=== PATIENT | male | born 1980 | race African-American/Black ===

== ENCOUNTER 2016-04-16 19:54 | Observation (INO) ==
[2016-04-16] MEDS ORDERED: methylPREDNISolone SOD SUC 125 MG/2 ML VIAL IV ONE (21:08)
[2016-04-16] MEDS ORDERED: ALBUTEROL 2.5 MG/3 ML NEB RESP TX STA ×2 (21:08→23:47)
--- NOTE | 2016-04-16 21:08 | Emergency Department Note ---
Arrival - Arrival Chief Complaint: Upper Respiratory Stated Complaint: sob ED Nursing Triage Note: C/C congestion in head and chest, productive cough, short of breath, wheezing started last night Mode of Arrival: Ambulatory Time Seen by Provider: 04/16/16 21:07 - History of Present Illness HPI Narrative: The patient presents complaining of shortness of breath and fever. The shortness of breath worsened today despite nebulizations at home. He states he has a nonproductive cough. He overall feels bad. The patient has no specific complaint of nausea vomiting chest pain or chills. Allergies/Adverse Reactions: Allergies Allergy/AdvReac Type Severity Reaction Status Date / Time No Known Allergies Allergy Verified 04/16/16 20:39 Home Medications: Home Medications Medication Instructions Recorded Confirmed Type Albuterol Inhaler [Proventil 2 puff INH Q4H PRN #1 inhaler 04/13/15 12/22/15 Rx Inhaler] predniSONE TAB [PredniSONE] 60 mg PO DAILY 3 Days 04/13/15 12/22/15 Rx Albuterol Neb [Proventil Neb] 2.5 mg RESP TX Q6H PRN #20 neb 12/22/15 Rx methylPREDNISolone DOSEPAK [Medrol 4 mg PO DIRECTED #1 packet 12/22/15 Rx Dosepak] Review of System - Review of System 12 point system: reviewed and no additional remarkable complaints except as stated Medical,Surgical,& Family Hx - Medical History Respiratory: History of: Asthma - Social History Smoking Status: Current every day smoker Frequency of Alcohol Use: Rarely Type of Drug Use: None Exam Physical Examination: The patient appears well-developed and well-nourished with no acute distress. HEENT exam is unremarkable. The oropharynx is moist. Tympanic membranes are shiny. The neck appears normal with midline appearance of the trachea. There is full range of motion. The lungs demonstrate diffuse wheezes bilaterally. There is symmetric movement of the chest wall with inspiration. No point tenderness is present. The heart has a regular rate and rhythm with no gallops or murmurs. Abdomen demonstrates a normal appearance and is nontender with no rebound or guarding. Normal active bowel sounds are present. The extremities demonstrate no clubbing, cyanosis, or edema and are intact. Normal range of motion is present. Neurological exam is unremarkable. Cranial nerves II through XII were checked and intact. No focal motor sensory deficit is present in the extremities. Vital Signs: Vital Signs Temperature 97.6 F 04/16/16 20:36 Pulse Rate 72 04/17/16 00:00 Respiratory Rate 17 04/17/16 00:00 Blood Pressure 128/96 04/16/16 20:36 O2 Sat by Pulse Oximetry 98 04/17/16 00:00 Course - Reevaluation(s) Reevaluation #1: The patient is still wheezing although he says he feels slightly better. I'm going to repeat one more breathing treatment and if he is not better may have to admit him. Time: 23:47 Reevaluation #2: Patient has had more hand-held nebulizations and continues to wheeze. Time: 00:17 - Consultations Consultation #1: Dr. Stevie Faith will evaluate and admit the patient. Time: 00:17 Results - Labs CBC & BMP: 04/16/16 21:35 04/16/16 21:35 Lab Results: I have reviewed the patients labs - Diagnostic Findings Procedure: Chest x-ray: image reviewed by me (no acute process.) Disposition Clinical Impression: Acute dyspnea, Asthma exacerbation Case discussed with: patient, patient's family Disposition: Still a Patient Condition: Stable Time of Disposition: 00:17
[2016-04-16] MEDS ORDERED: methylPREDNISolone SOD SUC 125 MG/2 ML VIAL ONE (21:31)
[2016-04-16 21:56] LABS: Basophils # 0.1 10*3/uL (0.0-0.2); Basophils % 0.5 % (0.0-0.8); Eosinophils # 0.6 10*3/uL (0.0-0.87); Eosinophils % 5.2 % (0.00-10.9); Hematocrit 43.4 VOL% (42.0-52.0); Hemoglobin 15.2 GM/DL (14.0-18.0); Immature Granulocytes % 0.2 %; Immature Granulocytes Absolute 0.02 #; Lymphocytes # 3.2 10*3/uL (1.4-4.0); Lymphocytes % 28.6 % (21.2-54.2); Mean Corpuscular Hemoglobin 32 PG (27-34); Mean Corpuscular Volume 91.6 FL (87-102); Mean Platelet Volume 10.1 FL (9.6-12.0); Monocytes # 0.8 10*3/uL (0.11-0.8); Monocytes % 6.6 % (1.7-12.7); Neutrophils # 6.7 10*3/uL (1.4-7.4); Neutrophils % 58.9 % (38.7-73.9); Platelet Count 276 T/CUMM (130-400); Red Blood Count 4.74 MC/CUMM (3.8-5.5); Red Cell Distribution Width 12.4 % (9.3-17.3); White Blood Count 11.3 T/CUMM (4-12)
[2016-04-16 22:11] LABS: Calcium 8.5 MG/DL (8.5-10.1); Magnesium 2.2 MG/DL (1.8-2.4); Osmolality,Calculated 293.3 MOS/KG (273-304); Potassium 3.7 MMOL/L (3.5-5.1)
--- NOTE | 2016-04-16 23:05 | XRay Report ---
History: Chest pain. Shortness of breath Date: 04/16/2016 Study: Chest x-ray AP portable Comparison exam: Chest x-ray December 22, 2015 The cardiomediastinal silhouette and pulmonary vasculature are unremarkable. The lungs and pleural spaces are clear. The osseous structures are unremarkable. Impression: No acute cardiopulmonary process. No significant interval change PROCEDURE INTERPRETED AT [facility] DEPARTMENT OF RADIOLOGY Final Report Signed by: Dr. Ariana Randle
--- NOTE | 2016-04-17 01:05 | Hospitalist History & Physical ---
Assessment and Plan (1) Acute dyspnea Status: Acute Current Visit: Yes (2) Asthma exacerbation Status: Acute Assessment and plan: Our plan for this patient be admitted to our service low-dose steroids and scheduled breathing treatments. Patient did have a possible pharyngitis only give him some IV Rocephin. Current Visit: Yes History of Present Illness Chief complaint: shortness of breath History of present illness: Mr. Chapman is a 36 year old male with past medical history significant for asthma was his normal state of health until the past 48 hours. Patient reports during this time he's had cough and congestion occurring during this time. Patient tried to use inhaler but his symptoms did not improve he came up to our hospital further evaluation I was consulted to admit the patient Home Medications Medication Instructions Recorded Confirmed Type Albuterol Inhaler [Proventil 2 puff INH Q4H PRN #1 inhaler 04/13/15 12/22/15 Rx Inhaler] predniSONE TAB [PredniSONE] 60 mg PO DAILY 3 Days 04/13/15 12/22/15 Rx Albuterol Neb [Proventil Neb] 2.5 mg RESP TX Q6H PRN #20 neb 12/22/15 Rx methylPREDNISolone DOSEPAK [Medrol 4 mg PO DIRECTED #1 packet 12/22/15 Rx Dosepak] Allergies Allergy/AdvReac Type Severity Reaction Status Date / Time No Known Allergies Allergy Verified 04/16/16 20:39 Medical,Surgical,& Family Hx - Medical History Respiratory: History of: Asthma - Surgical History Surgical History: noncontributory - Family History Family History: noncontributory - Social History Smoking Status: Current every day smoker Frequency of Alcohol Use: Rarely Type of Drug Use: None 12 point system: reviewed and no additional remarkable complaints except as stated Exam - Constitutional Vitals: Period Temp Pulse Resp BP Sys/Cisse Pulse Ox Last 24 Hr 97.6 F 70-80 12-18 128/96 97-100 General appearance: normal weight - Head Head exam: Present: normal inspection - Eye Eye exam: Present: EOMI Pupils: Present: ARMINDA - ENT ENT exam: Present: normal exam - Neck Neck exam: Present: normal inspection - Respiratory Respiratory exam: Present: wheezes (significantly improves and some examined by the ER physician) - Cardiovascular Cardiovascular exam: Present: regular rate and rhythm - GI/Abdominal GI/Abdominal exam: Present: normal bowel sounds - Extremities Exam Extremities exam: Present: normal inspection - Back Exam Back exam: Present: normal inspection - Neurological Exam Neurological exam: Present: alert - Psychiatric Psychiatric exam: Present: normal affect Results - Labs CBC & BMP: 04/16/16 21:35 04/16/16 21:35
[2016-04-17] MEDS ORDERED: ALBUTEROL 2.5 MG/3 ML NEB RESP TX PRN (01:08)
[2016-04-17] MEDS ORDERED: ACETAMINOPHEN 325 MG TABLET PO PRN (01:08)
[2016-04-17] MEDS ORDERED: ONDANSETRON 4 MG/2 ML VIAL IV PRN (01:08)
[2016-04-17] MEDS ORDERED: cefTRIAXone 1,000 MG in SODIUM CHLORIDE 0.9% 100 ML IV SCH (03:00)
[2016-04-17] MEDS ORDERED: cefTRIAXone 1,000 MG VIAL ONE (03:00)
[2016-04-17] MEDS ORDERED: SODIUM CHLORIDE 0.9% 100 ML IV ONE (03:00)
[2016-04-17] MEDS: methylPREDNISolone SOD SUC 125 MG/2 ML VIAL IV SCH ×3 (03:53→17:57)
[2016-04-17] MEDS ORDERED: SODIUM CHLORIDE 0.45% 1,000 ML IV SCH (04:00)
[2016-04-17] MEDS: ALBUTEROL/IPRATROPIUM 3 ML NEB RESP TX SCH ×2 (07:55→13:10)
--- NOTE | 2016-04-17 08:56 | Pulmonology Consult Note ---
Assessment and Plan (1) Tobacco abuse Status: Acute Assessment and plan: I discussed with them the need to stop smoking with his asthma. I do not think this was the cause of his asthma but it certainly can aggravate it. He says he plans to stop before his child is born. Current Visit: Yes (2) Asthma exacerbation Status: Acute Assessment and plan: Agree with corticosteroids bronchodilators and empiric antibiotics. He is having some sinus symptoms it may be worthwhile to x-ray his sinuses. I will add a controller drug with Advair. I can follow in the clinic if need be at discharge. Current Visit: Yes History of Present Illness Chief complaint: cough, shortness of breath History of present illness: Mr. Chapman is a 36 year old male with a history of asthma since he was 11 years old. He smokes about half a pack of cigarettes a day but says he is going to quit when his 's baby is born. He works at an [employer] without any significant exposure to toxins. He has about 2 flareups a year. He's not been hospitalized before. He's had a cough congestion and shortness of breath for about 3 days and had been on prednisone without improvement. He denies chest pain fever or chills sweats or hemoptysis. Home Medications Medication Instructions Recorded Confirmed Type Albuterol Inhaler [Proventil 2 puff INH Q4H PRN #1 inhaler 04/13/15 04/17/16 Rx Inhaler] Ranitidine Tab [Zantac Tab] 150 mg PO BID 04/17/16 04/17/16 History Allergies Allergy/AdvReac Type Severity Reaction Status Date / Time No Known Allergies Allergy Verified 04/16/16 20:39 - Cardiovascular Cardiovascular: Present: dyspnea, dyspnea on exertion - Respiratory Respiratory: Present: cough, dyspnea, dyspnea on exertion, wheezing, change in phlegm color Exam (Pulmonay) H&P - Constitutional Vitals: Period Temp Pulse Resp BP Sys/Cisse Pulse Ox Last 24 Hr 97.2 F-98.4 F 68-73 16-18 147-185/73-112 97-99 Exam: He is alert oriented afebrile. Pupils react to light. Throat is clear. Neck supple no bruits. Chest reveals minimal expiratory wheezes. He is not tight. Heart normal rate rhythm no murmurs. Abdomen soft no masses. Extremities no clubbing cyanosis edema. Calves nontender. Medical,Surgical,& Family Hx - Medical History Respiratory: History of: Asthma - Social History Smoking Status: Current every day smoker Frequency of Alcohol Use: Rarely Type of Drug Use: None Results - Labs CBC & BMP: 04/16/16 21:35 04/16/16 21:35 Lab Results: I have reviewed the past 24 hour labs - Diagnostic Findings Procedure: Chest x-ray: image reviewed by me (chest x-ray is within normal limits.) Specialty Discharge - Follow Up or Referrals
[2016-04-17] MEDS ORDERED: FLUTICASONE/SALMETEROL 250-50 DISKUS 14 DOSE INH SCH (09:00)
[2016-04-17] MEDS ORDERED: INFLUENZA VIRUS VACCINE 0.5 ML SYRINGE IM ONE (09:00)
[2016-04-17] MEDS ORDERED: PANTOPRAZOLE 40 MG TABLET PO SCH (09:00)
[2016-04-17 10:24] LABS: Calcium 8.6 MG/DL (8.5-10.1); Osmolality,Calculated 289.8 MOS/KG (273-304); Potassium 3.9 MMOL/L (3.5-5.1)
--- NOTE | 2016-04-17 13:49 | Discharge Summary ---
Hospital Course - Hospital Course Hospital Course: Mr. Chapman is a 36 year old male with past medical history significant for asthma was his normal state of health until the past 48 hours. Patient reports during this time he's had cough and congestion occurring during this time. Patient tried to use inhaler but his symptoms did not improve he came up to our hospital further evaluation I was consulted to admit the patient patient was admitted a put him on scheduled breathing treatments and pulmonary was consult did. Patient's son where L he's absolutely making and no wheezing noises currently. He feels much better. I do think he had a touch of pharyngitis and it is improved with the Rocephin. He is medicines maximum benefit from this hospitalization I'm discharging him Diagnosis - Discharge Diagnosis (1) Acute dyspnea Status: Acute (2) Asthma exacerbation Status: Acute Specialty Discharge - Follow Up or Referrals Discharge Plan - Discharge Data Disposition: Disch To Home/Self Care Condition at Discharge: Stable Discharge Diet: advance to your usual diet - Discharge Medications New methylPREDNISolone DOSEPAK [Medrol Dosepak] 4 mg PO DIRECTED #1 pack Acetaminophen Tab [Tylenol Tab] 650 mg PO Q4H PRN #0 tablet PRN Reason: fever, headache/body aches Amoxicillin/Clav Tab [Augmentin Tab] 875 mg PO Q12H #14 tablet Fluticasone/Salmeterol 250-50 [Advair 250-50] 1 puff INH BID #1 diskus Continue Albuterol Inhaler [Proventil Inhaler] 2 puff INH Q4H PRN #1 inhaler PRN Reason: Shortness Of Breath/Wheezing Ranitidine Tab [Zantac Tab] 150 mg PO BID - Follow Up or Referral - Forms/Instructions Forms: Work/School Release Exam - Constitutional Vitals: Period Temp Pulse Resp BP Sys/Cisse Pulse Ox Last 24 Hr 97.2 F-98.4 F 68-87 16-20 122-185/64-112 97-99 General appearance: normal weight - Head Head exam: Present: normal inspection - Eye Eye exam: Present: EOMI Pupils: Present: ARMINDA - ENT ENT exam: Present: normal exam - Neck Neck exam: Present: normal inspection - Respiratory Respiratory exam: Present: clear - Cardiovascular Cardiovascular exam: Present: regular rate and rhythm - GI/Abdominal GI/Abdominal exam: Present: normal bowel sounds - Extremities Exam Extremities exam: Present: normal inspection - Back Exam Back exam: Present: normal inspection - Neurological Exam Neurological exam: Present: alert - Psychiatric Psychiatric exam: Present: normal affect Discharge Results Labs on day of discharge: Labs from last 24 hours 04/17/16 09:26 Sodium 144 Potassium 3.9 Chloride 111 H Carbon Dioxide 18 L Anion Gap 18.9 H BUN 9 Creatinine 1.10 GFR Calculation 116 BUN/Creatinine Ratio 8.00 Glucose 181 H Calculated Osmolality 289.8 Calcium 8.6 DS: Provider Date of admission: 04/17/16 01:08 Primary care physician: . No PCP Attending physician on admission: Stevie Faith MD Discharging clinician: Stevie Faith MD
[2016-04-17 14:19] VITALS: BP 134/72
== END 2016-04-17 17:55 | disposition home or self-care (01) ==
LOC: N.ED 19:54 → N.EDINP 19:54 → N.4E 04-17 03:47
PROVIDERS: ADMIT Internal Medicine; ATTEND Internal Medicine

== ENCOUNTER 2017-08-24 04:09 | Inpatient (IN) ==
[2017-08-24] MEDS ORDERED: KETOROLAC 30 MG/1 ML VIAL IV STA (04:45)
[2017-08-24 04:57] LABS: Basophils # 0.1 10*3/uL (0.0-0.2); Basophils % 0.3 % (0.0-0.8); Hematocrit 44.1 VOL% (42.0-52.0); Hemoglobin 15.7 GM/DL (14.0-18.0); Immature Granulocytes % 0.4 %; Immature Granulocytes Absolute 0.07 #; Lymphocytes # 2.2 10*3/uL (1.4-4.0); Lymphocytes % 14.1 % (21.2-54.2); Mean Corpuscular HGB Conc 35.6 GM/DL (32-36); Mean Corpuscular Hemoglobin 32 PG (27-34); Mean Corpuscular Volume 89.6 FL (87-102); Mean Platelet Volume 10.3 FL (9.6-12.0); Monocytes # 0.6 10*3/uL (0.11-0.8); Monocytes % 3.8 % (1.7-12.7); Neutrophils # 12.9 10*3/uL (1.4-7.4); Neutrophils % 81.4 % (38.7-73.9); Platelet Count 332 T/CUMM (130-400); Red Blood Count 4.92 MC/CUMM (3.8-5.5); Red Cell Distribution Width 12.7 % (9.3-17.3); White Blood Count 15.8 T/CUMM (4-12)
[2017-08-24 05:15] LABS: Albumin 4.3 G/DL (3.4-5.0); Bilirubin,Total 0.5 MG/DL (0.2-1.0); Calcium 8.9 MG/DL (8.5-10.1); Osmolality,Calculated 280.4 MOS/KG (273-304); Potassium 3.4 MMOL/L (3.5-5.1); Total Protein 7.9 G/DL (6.4-8.3)
[2017-08-24] MEDS ORDERED: ASPIRIN 325 MG TABLET PO STA ×2 (05:43→06:50)
[2017-08-24] MEDS ORDERED: NITROGLYCERIN 2% OINT 1 INCH/GM PACK TOP STA (05:43)
[2017-08-24] MEDS ORDERED: ENOXAPARIN 100 MG/ML SYRINGE SUBCUT STA (05:44)
[2017-08-24] MEDS ORDERED: PANTOPRAZOLE 40 MG VIAL IV STA (05:56)
[2017-08-24] MEDS ORDERED: ALUM/MAG/SIMETH/LIDO VISC 1:1 30 ML BOTTLE PO STA (06:47)
[2017-08-24] MEDS ORDERED: NITROGLYCERIN SL 0.4 MG TABLET SL PRN (06:50)
[2017-08-24] MEDS ORDERED: ACETAMINOPHEN 325 MG TABLET PO PRN (06:54)
[2017-08-24] MEDS ORDERED: CLOPIDOGREL 300 MG TABLET PO STA (07:04)
[2017-08-24 07:44] LABS: Risk Ratio 4.5
[2017-08-24] MEDS: ENOXAPARIN 80 MG/0.8 ML SYRINGE SUBCUT SCH ×2 (07:52→21:04)
[2017-08-24] MEDS: ASPIRIN EC 81 MG TABLET PO SCH (09:33)
[2017-08-24] MEDS: MONTELUKAST 10 MG TABLET PO SCH (09:58)
[2017-08-24] MEDS: PANTOPRAZOLE 40 MG TABLET PO SCH (09:58)
[2017-08-24] MEDS: METOPROLOL TARTRATE 25 MG TABLET PO SCH ×2 (09:58→21:04)
[2017-08-24] MEDS: ROSUVASTATIN 10 MG TABLET PO SCH (09:58)
[2017-08-24] MEDS ORDERED: POTASSIUM CHLORIDE 20 MEQ TABLET PO ONE (10:33)
[2017-08-24 11:13] LABS: Apearance,Urine Slightly Hazy (Clear); Bilirubin,Urine Negative (Negative); Blood, Urine Negative (Negative); Glucose,Urine (UA) Negative (Negative); Ketones,Urine 5 mg/dL (Negative); Mucus,Urine Many /LPF (Occasional); Nitrite,Urine Negative (Negative); Protein,Urine 30 MG/DL; RBC,Urine 10 /HPF (0-4); Squamous Epithelial Cell,Urine Occasional /HPF (0-10); Urine Color Yellow (Yellow); Urine Specific Gravity 1.023 (1.001-1.035); WBC,Urine 23 /HPF (0-6)
[2017-08-24 11:21] LABS: Barbiturates Screen,Urine Negative (Negative); Benzodiazepines Screen,Urine Negative (Negative); Cannabinoid Screen,Urine Positive (Negative); Opiate Screen,Urine Positive (Negative); Phencyclidine Screen,Urine Negative (Negative)
[2017-08-24] MEDS: FLUTICASONE/SALMETEROL 250-50 DISKUS 14 DOSE INH SCH ×2 (13:14→21:04)
[2017-08-25 04:37] LABS: Basophils # 0.1 10*3/uL (0.0-0.2); Basophils % 0.6 % (0.0-0.8); Eosinophils # 0.2 10*3/uL (0.0-0.87); Eosinophils % 1.6 % (0.00-10.9); Hematocrit 45.4 VOL% (42.0-52.0); Hemoglobin 15.6 GM/DL (14.0-18.0); Immature Granulocytes % 0.4 %; Immature Granulocytes Absolute 0.04 #; Lymphocytes # 4.9 10*3/uL (1.4-4.0); Lymphocytes % 47.3 % (21.2-54.2); Mean Corpuscular HGB Conc 34.4 GM/DL (32-36); Mean Corpuscular Hemoglobin 31 PG (27-34); Mean Corpuscular Volume 90.8 FL (87-102); Mean Platelet Volume 10.3 FL (9.6-12.0); Monocytes # 0.8 10*3/uL (0.11-0.8); Monocytes % 7.6 % (1.7-12.7); Neutrophils # 4.4 10*3/uL (1.4-7.4); Neutrophils % 42.5 % (38.7-73.9); Platelet Count 293 T/CUMM (130-400); Red Cell Distribution Width 13.1 % (9.3-17.3); White Blood Count 10.3 T/CUMM (4-12)
[2017-08-25 05:06] LABS: Calcium 8.3 MG/DL (8.5-10.1); Osmolality,Calculated 281.1 MOS/KG (273-304); Potassium 3.5 MMOL/L (3.5-5.1)
[2017-08-25] MEDS ORDERED: DIAZEPAM 5 MG TABLET PO ONE (08:00)
[2017-08-25] MEDS ORDERED: diphenhydrAMINE CAP 50 MG CAPSULE PO ONE (08:01)
[2017-08-25] MEDS ORDERED: HEPARIN/NACL 0.9% 2 UNITS/ML 1,000 ML IV ONE (08:24)
[2017-08-25] MEDS: SODIUM CHLORIDE 0.9% 1,000 ML IV SCH (08:31)
[2017-08-25] MEDS: METOPROLOL TARTRATE 25 MG TABLET PO SCH ×2 (08:31→20:25)
[2017-08-25] MEDS: PANTOPRAZOLE 40 MG TABLET PO SCH (08:31)
[2017-08-25] MEDS ORDERED: MIDAZOLAM 2 MG/2 ML VIAL ONE (08:35)
[2017-08-25] MEDS ORDERED: fentaNYL 100 MCG/2 ML VIAL ONE (08:35)
[2017-08-25] MEDS ORDERED: ASPIRIN CHEW 81 MG TABLET PO ONE (08:39)
[2017-08-25] MEDS ORDERED: ENOXAPARIN 30 MG/0.3 ML SYRINGE ONE (09:00)
[2017-08-25] MEDS ORDERED: EPTIFIBATIDE 20,000 MCG/10 ML VIAL ONE (09:13)
[2017-08-25] MEDS ORDERED: EPTIFIBATIDE 75 MG/100 ML BOTTLE IV ONE (09:14)
[2017-08-25] MEDS: EPTIFIBATIDE 75 MG/100 ML BOTTLE IV SCH ×3 (09:18→21:19)
[2017-08-25] MEDS ORDERED: HEPARIN/NACL 0.9% 2 UNITS/ML 500 ML IV ONE (09:49)
[2017-08-25] MEDS ORDERED: TICAGRELOR 90 MG TABLET ONE (10:12)
[2017-08-25] MEDS ORDERED: ENOXAPARIN 60 MG/0.6 ML SYRINGE ONE (10:34)
[2017-08-25] MEDS ORDERED: TICAGRELOR 90 MG TABLET PO SCH (10:44)
[2017-08-25] MEDS ORDERED: ROSUVASTATIN 20 MG TABLET PO SCH (10:56)
[2017-08-25 11:34] LABS: Apearance,Urine CLEAR (Clear); Bilirubin,Urine Negative (Negative); Blood, Urine Negative (Negative); Glucose,Urine (UA) Negative (Negative); Ketones,Urine Negative (Negative); Mucus,Urine Occasional /LPF (Occasional); Nitrite,Urine Negative (Negative); Protein,Urine Negative; RBC,Urine 1 /HPF (0-4); Squamous Epithelial Cell,Urine Occasional /HPF (0-10); Urine Color Yellow (Yellow); Urine Specific Gravity 1.047 (1.001-1.035); WBC,Urine 1 /HPF (0-6)
[2017-08-25 12:02] LABS: Basophils # 0.1 10*3/uL (0.0-0.2); Basophils % 0.7 % (0.0-0.8); Eosinophils # 0.1 10*3/uL (0.0-0.87); Eosinophils % 1.3 % (0.00-10.9); Hematocrit 45.7 VOL% (42.0-52.0); Hemoglobin 15.5 GM/DL (14.0-18.0); Immature Granulocytes % 0.3 %; Immature Granulocytes Absolute 0.03 #; Lymphocytes # 3.9 10*3/uL (1.4-4.0); Lymphocytes % 37.9 % (21.2-54.2); Mean Corpuscular HGB Conc 33.9 GM/DL (32-36); Mean Corpuscular Hemoglobin 32 PG (27-34); Mean Corpuscular Volume 92.9 FL (87-102); Mean Platelet Volume 10.2 FL (9.6-12.0); Monocytes # 0.8 10*3/uL (0.11-0.8); Monocytes % 7.6 % (1.7-12.7); Neutrophils # 5.3 10*3/uL (1.4-7.4); Neutrophils % 52.2 % (38.7-73.9); Platelet Count 272 T/CUMM (130-400); Red Blood Count 4.92 MC/CUMM (3.8-5.5); Red Cell Distribution Width 13.2 % (9.3-17.3); White Blood Count 10.2 T/CUMM (4-12)
[2017-08-25] MEDS: ROSUVASTATIN 10 MG TABLET PO SCH (12:11)
[2017-08-25] MEDS: ASPIRIN EC 81 MG TABLET PO SCH (14:43)
[2017-08-25] MEDS: MONTELUKAST 10 MG TABLET PO SCH (14:43)
[2017-08-25] MEDS: ENOXAPARIN 80 MG/0.8 ML SYRINGE SUBCUT SCH (14:43)
[2017-08-25] MEDS: FLUTICASONE/SALMETEROL 250-50 DISKUS 14 DOSE INH SCH ×2 (14:44→20:24)
[2017-08-26] MEDS: ENOXAPARIN 80 MG/0.8 ML SYRINGE SUBCUT SCH ×2 (03:13→15:00)
[2017-08-26] MEDS: SODIUM CHLORIDE 0.9% 1,000 ML IV SCH (03:15)
[2017-08-26] MEDS: EPTIFIBATIDE 75 MG/100 ML BOTTLE IV SCH (04:15)
[2017-08-26 05:40] LABS: Basophils # 0.1 10*3/uL (0.0-0.2); Basophils % 0.5 % (0.0-0.8); Eosinophils # 0.1 10*3/uL (0.0-0.87); Eosinophils % 0.7 % (0.00-10.9); Hematocrit 41.1 VOL% (42.0-52.0); Hemoglobin 14.2 GM/DL (14.0-18.0); Immature Granulocytes % 0.3 %; Immature Granulocytes Absolute 0.04 #; Lymphocytes # 3.2 10*3/uL (1.4-4.0); Lymphocytes % 25.7 % (21.2-54.2); Mean Corpuscular HGB Conc 34.5 GM/DL (32-36); Mean Corpuscular Hemoglobin 31 PG (27-34); Mean Corpuscular Volume 90.9 FL (87-102); Mean Platelet Volume 10.1 FL (9.6-12.0); Monocytes # 1.1 10*3/uL (0.11-0.8); Monocytes % 8.8 % (1.7-12.7); Platelet Count 271 T/CUMM (130-400); Red Blood Count 4.52 MC/CUMM (3.8-5.5); Red Cell Distribution Width 12.9 % (9.3-17.3); White Blood Count 12.5 T/CUMM (4-12)
[2017-08-26 06:00] LABS: Blood Urea Nitrogen 9 MG/DL (7-18); Calcium 8.2 MG/DL (8.5-10.1); Glucose 102 MG/DL (74-106); Osmolality,Calculated 281.1 MOS/KG (273-304); Potassium 3.5 MMOL/L (3.5-5.1); Sodium 142 MMOL/L (136-145)
[2017-08-26] MEDS ORDERED: POTASSIUM CHLORIDE RIDER 10 MEQ in PREMIX 1 EACH IV PRN (08:01)
[2017-08-26] MEDS ORDERED: MAGNESIUM SULF RIDER 2 GM in PREMIX 1 EACH IV PRN (08:01)
[2017-08-26] MEDS ORDERED: POTASSIUM CHLORIDE 20 MEQ TABLET PO ONE (08:03)
[2017-08-26] MEDS: PANTOPRAZOLE 40 MG TABLET PO SCH (09:02)
[2017-08-26] MEDS: ASPIRIN EC 81 MG TABLET PO SCH (09:02)
[2017-08-26] MEDS: METOPROLOL TARTRATE 25 MG TABLET PO SCH ×2 (09:02→20:35)
[2017-08-26] MEDS: FLUTICASONE/SALMETEROL 250-50 DISKUS 14 DOSE INH SCH ×2 (09:02→20:34)
[2017-08-26] MEDS: TICAGRELOR 90 MG TABLET PO SCH ×2 (09:02→20:34)
[2017-08-26] MEDS: MONTELUKAST 10 MG TABLET PO SCH (09:03)
[2017-08-26] MEDS: NICOTINE 21 MG/24 HR PATCH TRANSDERM SCH (14:59)
[2017-08-26] MEDS ORDERED: ONDANSETRON 4 MG/2 ML VIAL IV PRN (15:44)
[2017-08-26] MEDS ORDERED: MAGNESIUM HYDROXIDE SUSP 30 ML UDCUP PO PRN (15:44)
[2017-08-26] MEDS ORDERED: diphenhydrAMINE CAP 25 MG CAPSULE PO PRN (15:44)
[2017-08-26] MEDS: ROSUVASTATIN 20 MG TABLET PO SCH (20:35)
[2017-08-27] MEDS: ENOXAPARIN 80 MG/0.8 ML SYRINGE SUBCUT SCH ×2 (03:03→15:40)
[2017-08-27 04:51] LABS: Basophils # 0.1 10*3/uL (0.0-0.2); Basophils % 0.5 % (0.0-0.8); Eosinophils # 0.3 10*3/uL (0.0-0.87); Eosinophils % 2.6 % (0.00-10.9); Hematocrit 42.5 VOL% (42.0-52.0); Hemoglobin 14.5 GM/DL (14.0-18.0); Immature Granulocytes % 0.3 %; Immature Granulocytes Absolute 0.04 #; Lymphocytes # 3.2 10*3/uL (1.4-4.0); Lymphocytes % 26.5 % (21.2-54.2); Mean Corpuscular HGB Conc 34.1 GM/DL (32-36); Mean Corpuscular Hemoglobin 31 PG (27-34); Mean Corpuscular Volume 91.2 FL (87-102); Mean Platelet Volume 10.3 FL (9.6-12.0); Monocytes # 1.1 10*3/uL (0.11-0.8); Monocytes % 9.4 % (1.7-12.7); Neutrophils # 7.3 10*3/uL (1.4-7.4); Neutrophils % 60.7 % (38.7-73.9); Platelet Count 275 T/CUMM (130-400); Red Blood Count 4.66 MC/CUMM (3.8-5.5); Red Cell Distribution Width 12.9 % (9.3-17.3)
[2017-08-27 05:14] LABS: Calcium 8.8 MG/DL (8.5-10.1); Osmolality,Calculated 279.3 MOS/KG (273-304); Potassium 3.6 MMOL/L (3.5-5.1)
[2017-08-27] MEDS: NICOTINE 21 MG/24 HR PATCH TRANSDERM SCH ×2 (09:11→09:13)
[2017-08-27] MEDS: METOPROLOL TARTRATE 25 MG TABLET PO SCH ×2 (09:11→20:41)
[2017-08-27] MEDS: TICAGRELOR 90 MG TABLET PO SCH ×2 (09:11→20:41)
[2017-08-27] MEDS: MONTELUKAST 10 MG TABLET PO SCH (09:11)
[2017-08-27] MEDS: FLUTICASONE/SALMETEROL 250-50 DISKUS 14 DOSE INH SCH ×2 (09:11→20:41)
[2017-08-27] MEDS: ASPIRIN EC 81 MG TABLET PO SCH (09:11)
[2017-08-27] MEDS: PANTOPRAZOLE 40 MG TABLET PO SCH (09:11)
[2017-08-27] MEDS: ROSUVASTATIN 20 MG TABLET PO SCH (20:41)
[2017-08-28 04:30] LABS: Basophils # 0.1 10*3/uL (0.0-0.2); Basophils % 0.4 % (0.0-0.8); Eosinophils # 0.4 10*3/uL (0.0-0.87); Eosinophils % 3.2 % (0.00-10.9); Hematocrit 42.1 VOL% (42.0-52.0); Hemoglobin 14.9 GM/DL (14.0-18.0); Immature Granulocytes % 0.4 %; Immature Granulocytes Absolute 0.05 #; Lymphocytes # 3.2 10*3/uL (1.4-4.0); Lymphocytes % 24.1 % (21.2-54.2); Mean Corpuscular HGB Conc 35.4 GM/DL (32-36); Mean Corpuscular Hemoglobin 31 PG (27-34); Mean Corpuscular Volume 88.1 FL (87-102); Mean Platelet Volume 10.7 FL (9.6-12.0); Monocytes % 7.2 % (1.7-12.7); Neutrophils # 8.6 10*3/uL (1.4-7.4); Neutrophils % 64.7 % (38.7-73.9); Platelet Count 271 T/CUMM (130-400); Red Blood Count 4.78 MC/CUMM (3.8-5.5); Red Cell Distribution Width 12.6 % (9.3-17.3); White Blood Count 13.3 T/CUMM (4-12)
[2017-08-28 05:06] LABS: Calcium 8.8 MG/DL (8.5-10.1); Osmolality,Calculated 277.4 MOS/KG (273-304); Potassium 3.7 MMOL/L (3.5-5.1)
[2017-08-28] MEDS ORDERED: diphenhydrAMINE CAP 25 MG CAPSULE PO ONE (07:00)
[2017-08-28] MEDS ORDERED: DIAZEPAM 5 MG TABLET PO ONE (07:00)
[2017-08-28] MEDS: METOPROLOL TARTRATE 25 MG TABLET PO SCH ×2 (08:49→21:32)
[2017-08-28] MEDS: PANTOPRAZOLE 40 MG TABLET PO SCH (08:49)
[2017-08-28] MEDS: FLUTICASONE/SALMETEROL 250-50 DISKUS 14 DOSE INH SCH ×2 (08:49→21:33)
[2017-08-28] MEDS: MONTELUKAST 10 MG TABLET PO SCH (08:50)
[2017-08-28] MEDS: NICOTINE 21 MG/24 HR PATCH TRANSDERM SCH ×2 (08:50→10:58)
[2017-08-28] MEDS: ASPIRIN EC 81 MG TABLET PO SCH (08:50)
[2017-08-28] MEDS: TICAGRELOR 90 MG TABLET PO SCH ×2 (08:50→21:32)
[2017-08-28] MEDS ORDERED: HEPARIN/NACL 0.9% 2 UNITS/ML 1,000 ML IV ONE (08:54)
[2017-08-28] MEDS ORDERED: LIDOCAINE 1%/EPI INJ 20 ML VIAL ONE (09:10)
[2017-08-28] MEDS ORDERED: MIDAZOLAM 2 MG/2 ML VIAL ONE (09:12)
[2017-08-28] MEDS ORDERED: fentaNYL 100 MCG/2 ML VIAL ONE (09:13)
[2017-08-28] MEDS ORDERED: ENOXAPARIN 60 MG/0.6 ML SYRINGE ONE (09:25)
[2017-08-28] MEDS ORDERED: ADENOSINE 90 MG/30 ML VIAL IV ONE (09:29)
[2017-08-28] MEDS: ROSUVASTATIN 20 MG TABLET PO SCH (21:32)
[2017-08-29 05:08] LABS: Basophils % 0.4 % (0.0-0.8); Eosinophils # 0.4 10*3/uL (0.0-0.87); Eosinophils % 3.6 % (0.00-10.9); Hematocrit 39.8 VOL% (42.0-52.0); Hemoglobin 14.2 GM/DL (14.0-18.0); Immature Granulocytes % 0.4 %; Immature Granulocytes Absolute 0.04 #; Lymphocytes # 2.7 10*3/uL (1.4-4.0); Lymphocytes % 25.7 % (21.2-54.2); Mean Corpuscular HGB Conc 35.7 GM/DL (32-36); Mean Corpuscular Hemoglobin 32 PG (27-34); Mean Corpuscular Volume 89.2 FL (87-102); Mean Platelet Volume 10.3 FL (9.6-12.0); Monocytes # 0.8 10*3/uL (0.11-0.8); Monocytes % 7.4 % (1.7-12.7); Neutrophils # 6.6 10*3/uL (1.4-7.4); Neutrophils % 62.5 % (38.7-73.9); Platelet Count 250 T/CUMM (130-400); Red Blood Count 4.46 MC/CUMM (3.8-5.5); Red Cell Distribution Width 12.6 % (9.3-17.3); White Blood Count 10.5 T/CUMM (4-12)
[2017-08-29 05:47] LABS: Calcium 8.7 MG/DL (8.5-10.1); Osmolality,Calculated 280.3 MOS/KG (273-304)
[2017-08-29 08:41] VITALS: BP 109/72
[2017-08-29] MEDS: MONTELUKAST 10 MG TABLET PO SCH (09:37)
[2017-08-29] MEDS: TICAGRELOR 90 MG TABLET PO SCH (09:37)
[2017-08-29] MEDS: ASPIRIN EC 81 MG TABLET PO SCH (09:37)
[2017-08-29] MEDS: PANTOPRAZOLE 40 MG TABLET PO SCH (09:37)
[2017-08-29] MEDS: METOPROLOL TARTRATE 25 MG TABLET PO SCH (09:37)
[2017-08-29] MEDS: NICOTINE 21 MG/24 HR PATCH TRANSDERM SCH (09:38)
[2017-08-29] MEDS: FLUTICASONE/SALMETEROL 250-50 DISKUS 14 DOSE INH SCH (09:40)
== END 2017-08-29 11:06 | disposition home or self-care (01) | DRG 251 ==
LOC: N.ED 04:09 → N.EDINP 08:07 → N.TELES 09:07 → N.CC 08-25 10:59 → N.TELEN 08-26 21:37
PROVIDERS: ADMIT Internal Medicine; ATTEND Internal Medicine Interventional Cardiology
PROC: CLCCHCL (ICD-10-PCS; 2017-08-25 09:15)